=== PATIENT | female | born 1965 | race American Indian/Alaskan Native ===

== ENCOUNTER 2019-10-14 15:25 | Inpatient (IN) | payer BC ==
--- NOTE | 2019-10-14 16:04 | Event Note ---
ED Screening Note ED Screening Note: +productive cough that began a week ago +n/v/d rhinorrhea congestion +sob PMHx Graves, states has not taken medicine in 10 years allergy:penicillin +smoker, 1 pack a week non drinker This initial assessment/diagnostic orders/clinical plan/treatment(s) is/are subject to change based on patients health status, clinical progression and re- assessment by fellow clinical providers in the ED. Further treatment and workup at subsequent clinical providers discretion. Patient/guardian urged not to elope from the ED as their condition may be serious if not clinically assessed and managed. Initial orders include: labs, CXR
[2019-10-14 16:34] LABS: Basophils # (Auto) 0.1 K/mm3 (0.0-0.1); Basophils % (Auto) 1.3 % (0.0-1.8); Eosinophils % (Auto) 0.1 % (0.0-4.3); Hematocrit 41.8 % (30.3-42.9); Hemoglobin 13.7 gm/dl (10.1-14.3); Lymphocytes # (Auto) 3.3 K/mm3 (1.2-5.4); Lymphocytes % (Auto) 45.2 % (13.4-35.0); Mean Corpuscular HGB Conc 33 % (30-34); Mean Corpuscular Volume 90 fl (79-97); Monocytes # (Auto) 0.4 K/mm3 (0.0-0.8); Monocytes % (Auto) 6.2 % (0.0-7.3); Platelet Count 200 K/mm3 (140-440); Red Blood Count 4.64 M/mm3 (3.65-5.03); Red Cell Distribution Width 14.4 % (13.2-15.2)
[2019-10-14 16:43] LABS: Alanine Aminotransferase 16 units/L (7-56); Albumin 4.2 g/dL (3.9-5); BUN/Creatinine Ratio 18; Blood Urea Nitrogen 14 mg/dL (7-17); Calcium 9.4 mg/dL (8.4-10.2); Hemolysis Index 18
--- NOTE | 2019-10-14 16:47 | XRay Report ---
CHEST 2 VIEWS INDICATION / CLINICAL INFORMATION: prod cough. COMPARISON: None available. FINDINGS: SUPPORT DEVICES: None. HEART / MEDIASTINUM: Moderate cardiomegaly. LUNGS / PLEURA: Lungs appear mildly hyperinflated. Prominence of vascular and interstitial markings i s noted throughout the lungs. No consolidative parenchymal opacity. No pleural fluid. No pneumothorax . ADDITIONAL FINDINGS: No significant additional findings. IMPRESSION: 1. Findings are suggestive of CHF with mild interstitial edema in the lungs, possibly superimposed on emphysematous changes. Signer Name: Eric Briceno MD Signed: 10/14/2019 4:43 PM Workstation Name: [id number]
--- NOTE | 2019-10-14 17:56 | Emergency Department Report ---
ED Shortness of Breath HPI - General Chief Complaint: Chest Pain Stated Complaint: CHEST PAIN/NAUSE /ARLIN Time Seen by Provider: 10/14/19 16:02 Source: patient Mode of arrival: Ambulatory Limitations: No Limitations - History of Present Illness Initial Comments: 54-year-old female with a known past medical history of hypertension and Graves disease presents to emergency department complaining of a 2.5 week cough congestion coryza and a 1 week history of progressively worsening shortness of breath associated with exertional dyspnea and orthopnea. She reports no hemoptysis, hematemesis or hematochezia reports no fevers chills or sweats but has had some associated nausea and vomiting as well for the past one week. States she's never taken her thyroid medication as prescribed but reports no known history of cardiovascular disease including cardiomyopathy and CHF. - Related Data Allergies Allergy/AdvReac Type Severity Reaction Status Date / Time No Known Allergies Allergy Unverified 10/14/19 15:50 ED Review of Systems ROS: Stated complaint: CHEST PAIN/NAUSE /ARLIN Other details as noted in HPI Comment: All other systems reviewed and negative ED Past Medical Hx - Past Medical History Hx Hypertension: Yes Additional medical history: GRAVES DISEASE - Surgical History Past Surgical History?: No - Social History Smoking Status: Current Every Day Smoker Substance Use Type: Alcohol ED Physical Exam - General Limitations: No Limitations General appearance: lethargic, in distress - Head Head exam: Present: atraumatic, normocephalic - Eye Eye exam: Present: normal appearance - ENT ENT exam: Present: mucous membranes moist - Neck Neck exam: Present: normal inspection - Respiratory Respiratory exam: Present: normal lung sounds bilaterally, rales, decreased breath sounds. Absent: respiratory distress - Cardiovascular Cardiovascular Exam: Present: regular rate, normal rhythm. Absent: systolic murmur, diastolic murmur, rubs, gallop - GI/Abdominal GI/Abdominal exam: Present: soft, normal bowel sounds - Extremities Exam Extremities exam: Present: normal inspection - Back Exam Back exam: Present: normal inspection - Neurological Exam Neurological exam: Present: alert, oriented X3 - Psychiatric Psychiatric exam: Present: normal affect, normal mood - Skin Skin exam: Present: warm, dry, intact, normal color. Absent: rash ED Course Vital Signs 10/14/19 15:51 Temperature 97.7 F Pulse Rate 76 Blood Pressure 171/93 O2 Sat by Pulse 100 Oximetry - Consultations Consultation #1: 10/14/19 17:[address] Nunez of hospitalist who agrees to admission ED Medical Decision Making - Lab Data Result diagrams: 10/14/19 16:15 10/14/19 16:15 - EKG Data EKG shows normal: sinus rhythm Rate: normal - EKG Data When compared to previous EKG there are: no significant change - Radiology Data Radiology results: report reviewed [facility] [address] [place] [address] XRay Report Signed Patient: TORSTEN DIAZ MR#: [id number] : 1965 Acct:[id number] Age/Sex: 54 / F ADM Date: 10/14/19 Loc: ED Attending Dr: Ordering Physician: ELGIN JANSEN Date of Service: 10/14/19 Procedure(s): XR chest routine 2V Accession Number(s): [id number] cc: ELGIN JANSEN Fluoro Time In Minutes: CHEST 2 VIEWS INDICATION / CLINICAL INFORMATION: prod cough. COMPARISON: None available. FINDINGS: SUPPORT DEVICES: None. HEART / MEDIASTINUM: Moderate cardiomegaly. LUNGS / PLEURA: Lungs appear mildly hyperinflated. Prominence of vascular and interstitial markings is noted throughout the lungs. No consolidative parenchymal opacity. No pleural fluid. No pneum othorax. ADDITIONAL FINDINGS: No significant additional findings. IMPRESSION: 1. Findings are suggestive of CHF with mild interstitial edema in the lungs, possibly superimposed on emphysematous changes. Signer Name: Eric Briceno MD Signed: 10/14/2019 4:43 PM Workstation Name: [id number] Transcribed By: SYLVAIN Dictated By: Eric Briceno MD Electronically Authenticated By: Eric Briceno MD Signed Date/Time: 10/14/19 164 DD/ 164 TD/TT: Critical care attestation.: If time is entered above; I have spent that time in minutes in the direct care of this critically ill patient, excluding procedure time. ED Disposition Clinical Impression: SOB (shortness of breath), CHF (congestive heart failure) Disposition: 09 OP ADMIT IP TO THIS HOSP Is pt being admited?: Yes Does the pt Need Aspirin: No Condition: Stable
[2019-10-14] MEDS ORDERED: MORPHINE 4 MG/1 ML INJ IV ONE (18:44)
[2019-10-14] MEDS ORDERED: ONDANSETRON 4 MG/2 ML INJ IV ONE (18:44)
[2019-10-14] MEDS ORDERED: ONDANSETRON 4 MG/2 ML INJ IV PRN (20:48)
[2019-10-14] MEDS ORDERED: ACETAMINOPHEN 325 MG TAB PO PRN (20:48)
--- NOTE | 2019-10-14 20:48 | History and Physical Report ---
History of Present Illness Date of examination: 10/14/19 Date of admission: 10/14/19 18:01 Chief complaint: Shortness of breath for 1 week History of present illness: 54-year-old -[place] female with history of hypertension, congestive heart failure and hypothyroidism comes in for increasing shortness of breath over the last 1 week. Patient has exertional dyspnea on minimal exertion and also has orthopnea and wheezing. Patient states that she has CHF and not taking any medications or follow-up with any physician/primary care/cardiology. No chest pain. Patient is not taking her thyroid medications as prescribed. Noncompliant. Current every day smoker and alcohol occasionally. Patient also has cough and congestion. Past Medical History Hypertension CHF Hypothyroidism Surgical History Past Surgical History?: No Social History Smoking Status: Current Every Day Smoker Substance Use Type: Alcohol Family History CHF,Htn Review of Systems ROS: Stated complaint: CHEST PAIN/NAUSE /ARLIN Other details as noted in HPI Comment: All other systems reviewed and negative Medications and Allergies Allergies Allergy/AdvReac Type Severity Reaction Status Date / Time No Known Allergies Allergy Verified 10/14/19 18:17 Home Medications Medication Instructions Recorded Confirmed Last Taken Type No Known Home Medications [No 10/14/19 10/14/19 Unknown History Reported Home Medications] Exam - Constitutional Vitals: Temp Pulse Resp BP Pulse Ox 98.5 F 73 18 147/81 99 10/14/19 19:56 10/14/19 19:56 10/14/19 19:56 10/14/19 19:56 10/14/19 19:56 General appearance: Present: no acute distress, well-nourished - EENT Eyes: Present: PERRL ENT: hearing intact, clear oral mucosa - Neck Neck: Present: supple, normal ROM - Respiratory Respiratory effort: normal Respiratory: bilateral: rales - Cardiovascular Heart rate: 93 Rhythm: regular Heart Sounds: Present: S1 & S2. Absent: rub, click - Extremities Extremities: no ischemia, pulses intact, pulses symmetrical, No edema Peripheral Pulses: within normal limits - Abdominal General gastrointestinal: Present: soft, non-tender, non-distended, normal bowel sounds Female genitourinary: Present: normal - Rectal Rectal Exam: deferred - Integumentary Integumentary: Present: clear, warm, dry - Musculoskeletal Musculoskeletal: gait normal, strength equal bilaterally - Psychiatric Psychiatric: appropriate mood/affect, intact judgment & insight - Neurologic Neurologic: CNII-XII intact, moves all extremities - Allied Health Allied health notes reviewed: nursing, case management Results - Labs CBC & Chem 7: 10/14/19 16:15 10/14/19 16:15 Labs: Laboratory Last Values WBC 7.2 K/mm3 (4.5-11.0) 10/14/19 16:15 RBC 4.64 M/mm3 (3.65-5.03) 10/14/19 16:15 Hgb 13.7 gm/dl (10.1-14.3) 10/14/19 16:15 Hct 41.8 % (30.3-42.9) 10/14/19 16:15 MCV 90 fl (79-97) 10/14/19 16:15 MCH 30 pg (28-32) 10/14/19 16:15 MCHC 33 % (30-34) 10/14/19 16:15 RDW 14.4 % (13.2-15.2) 10/14/19 16:15 Plt Count 200 K/mm3 (140-440) 10/14/19 16:15 Lymph % (Auto) 45.2 % (13.4-35.0) H 10/14/19 16:15 Morris % (Auto) 6.2 % (0.0-7.3) 10/14/19 16:15 Eos % (Auto) 0.1 % (0.0-4.3) 10/14/19 16:15 Baso % (Auto) 1.3 % (0.0-1.8) 10/14/19 16:15 Lymph # 3.3 K/mm3 (1.2-5.4) 10/14/19 16:15 Morris # 0.4 K/mm3 (0.0-0.8) 10/14/19 16:15 Eos # 0.0 K/mm3 (0.0-0.4) 10/14/19 16:15 Baso # 0.1 K/mm3 (0.0-0.1) 10/14/19 16:15 Seg Neutrophils % 47.2 % (40.0-70.0) 10/14/19 16:15 Seg Neutrophils # 3.4 K/mm3 (1.8-7.7) 10/14/19 16:15 Sodium 137 mmol/L (137-145) 10/14/19 16:15 Potassium 4.0 mmol/L (3.6-5.0) 10/14/19 16:15 Chloride 98.8 mmol/L (98-107) 10/14/19 16:15 Carbon Dioxide 17 mmol/L (22-30) L 10/14/19 16:15 Anion Gap 25 mmol/L 10/14/19 16:15 BUN 14 mg/dL (7-17) 10/14/19 16:15 Creatinine 0.8 mg/dL (0.7-1.2) 10/14/19 16:15 Estimated GFR > 60 ml/min 10/14/19 16:15 BUN/Creatinine Ratio 18 % 10/14/19 16:15 Glucose 121 mg/dL (65-100) H 10/14/19 16:15 Calcium 9.4 mg/dL (8.4-10.2) 10/14/19 16:15 Phosphorus 2.10 mg/dL (2.5-4.5) L 10/14/19 16:15 Magnesium 1.80 mg/dL (1.7-2.3) 10/14/19 16:15 Total Bilirubin 1.00 mg/dL (0.1-1.2) 10/14/19 16:15 AST 22 units/L (5-40) 10/14/19 16:15 ALT 16 units/L (7-56) 10/14/19 16:15 Alkaline Phosphatase 69 units/L (35-129) 10/14/19 16:15 Total Creatine Kinase 95 units/L (30-135) 10/14/19 16:15 Troponin T < 0.010 ng/mL (0.00-0.029) 10/14/19 16:15 NT-Pro-B Natriuret Pep 6355 pg/mL (0-900) H 10/14/19 16:15 Total Protein 7.3 g/dL (6.3-8.2) 10/14/19 16:15 Albumin 4.2 g/dL (3.9-5) 10/14/19 16:15 Albumin/Globulin Ratio 1.4 % 10/14/19 16:15 Lipase 11 units/L (13-60) L 10/14/19 16:15 TSH 9.000 mlU/mL (0.270-4.200) H 10/14/19 16:15 Short CBC 10/14/19 Range/Units 16:15 WBC 7.2 (4.5-11.0) K/mm3 Hgb 13.7 (10.1-14.3) gm/dl Hct 41.8 (30.3-42.9) % Plt Count 200 (140-440) K/mm3 BMP 10/14/19 16:15 Sodium 137 Potassium 4.0 Chloride 98.8 Carbon Dioxide 17 L BUN 14 Creatinine 0.8 Glucose 121 H Calcium 9.4 Cardiac Enzymes 10/14/19 10/14/19 Range/Units 16:15 16:15 Total Creatine Kinase 95 (30-135) units/L Troponin T < 0.010 (0.00-0.029) ng/mL Liver Function 10/14/19 Range/Units 16:15 Total Bilirubin 1.00 (0.1-1.2) mg/dL AST 22 (5-40) units/L ALT 16 (7-56) units/L Alkaline Phosphatase 69 (35-129) units/L Albumin 4.2 (3.9-5) g/dL - Imaging and Cardiology EKG: report reviewed (normal sinus rhythm, heart rate of 93 per minute, LVH by voltage criteria) Chest x-ray: report reviewed Imaging and Cardiology: Chest x-ray IMPRESSION: 1. Findings are suggestive of CHF with mild interstitial edema in the lungs, possibly superimposed on emphysematous changes. Assessment and Plan Advance Directives: Yes (full code) VTE prophylaxis?: Chemical Plan of care discussed with patient/family: Yes - Patient Problems (1) Acute exacerbation of CHF (congestive heart failure) Current Visit: Yes Status: Acute Qualifiers: Heart failure type: combined systolic and diastolic Qualified Code(s): I50. 43 - Acute on chronic combined systolic (congestive) and diastolic (congestive) heart failure Plan to address problem: Patient needs admission for acute exacerbation of CHF BNP is high Patient is orthopneic and has class IV NYHA symptoms IV Lasix every 12 hours Daily weights Daily intake and output Cardiology consult Echocardiogram ordered (2) Hypertension Current Visit: Yes Status: Chronic Qualifiers: Hypertension type: essential hypertension Qualified Code(s): I10 - Essential (primary) hypertension Plan to address problem: Patient was started on losartan 100 mg once a day (3) Hypothyroidism (acquired) Current Visit: Yes Status: Chronic Plan to address problem: History is not clear Patient says Graves' disease But suspect hypothyroidism because TSH is high Thyroid panel ordered Patient was not started on any thyroid medication or methimazole Will defer to primary team (4) Nicotine dependence Current Visit: Yes Status: Chronic Qualifiers: Nicotine product type: cigarettes Plan to address problem: Patient counseled about stopping smoking NicoDerm patch ordered (5) DVT prophylaxis Current Visit: Yes Status: Acute Plan to address problem: On heparin and GI prophylaxis
[2019-10-14] MEDS ORDERED: POTASSIUM CHLORIDE ER 20 MEQ TAB PO ONE (20:53)
[2019-10-14] MEDS ORDERED: LIP THERAPY VASELINE TP PRN (21:26)
[2019-10-14] MEDS: HYDROmorphone 1 MG/1 ML INJ IV PRN (21:29)
[2019-10-14] MEDS: FAMOTIDINE 20 MG TAB PO SCH (21:30)
[2019-10-14] MEDS: LOSARTAN 50 MG TAB PO SCH (21:30)
[2019-10-14 22:00] LABS: Free T4 (Free Thyroxine) 1.15 ng/dL (0.76-1.46)
[2019-10-15] MEDS: FUROSEMIDE 40 MG/4 ML INJ IV SCH ×2 (05:09→18:26)
[2019-10-15 07:58] LABS: Basophils # (Auto) 0.1 K/mm3 (0.0-0.1); Basophils % (Auto) 1.3 % (0.0-1.8); Eosinophils # (Auto) 0.1 K/mm3 (0.0-0.4); Eosinophils % (Auto) 1.2 % (0.0-4.3); Hematocrit 40.7 % (30.3-42.9); Hemoglobin 13.3 gm/dl (10.1-14.3); Lymphocytes # (Auto) 2.8 K/mm3 (1.2-5.4); Lymphocytes % (Auto) 47.3 % (13.4-35.0); Mean Corpuscular HGB Conc 33 % (30-34); Mean Corpuscular Volume 90 fl (79-97); Monocytes # (Auto) 0.6 K/mm3 (0.0-0.8); Monocytes % (Auto) 9.6 % (0.0-7.3); Platelet Count 165 K/mm3 (140-440); Red Blood Count 4.52 M/mm3 (3.65-5.03); Red Cell Distribution Width 14.2 % (13.2-15.2)
[2019-10-15] MEDS: oxyCODONE /ACETAMINOPHEN 5-325MG TAB PO PRN ×2 (08:09→18:26)
[2019-10-15 08:12] LABS: Alanine Aminotransferase 15 units/L (7-56); BUN/Creatinine Ratio 16; Blood Urea Nitrogen 13 mg/dL (7-17); Calcium 9.2 mg/dL (8.4-10.2); Hemolysis Index 4
--- NOTE | 2019-10-15 08:55 | Progress Note ---
Assessment and Plan Assessment and plan: 54-year-old woman who presents to the hospital with increased shortness of breath and chest pain. Chest pain Cardiology input appreciated, follow-up echo History of heart failure Subclinical hypothyroidism -History of Graves' disease. Thyroxine levels are normal. Repeat thyroid function tests in 3 to 4 months. Tobacco abuse/dependence Smoking cessation counseling performed for 10 minutes, nicotine patches when necessary History Interval history: Review of systems Constitutional: No fevers, no malaise, no joint pains CVS: No chest pain, no orthopnea, no pedal edema GI: No abdominal pain, no diarrhea, no vomiting, no constipation Respiratory: , no wheezing, no coughing Hospitalist Physical - Physical exam Narrative exam: General.: Appears well, no distress, nontoxic HEENT: Moist mucous membranes, extraocular muscles intact, no lymphadenopathy Neck: supple Cardiac: S1-S2 heard Lungs: clear to auscultation bilaterally Abdomen: soft , nontender, nondistended, bowel sounds positive Extremities: no edema clubbing or cyanosis Skin: no rash or lesions Neurologic: no gross focal deficits Psych: calm, and cooperative - Constitutional Vitals: Temp Pulse Resp BP Pulse Ox 97.6 F 67 18 134/75 95 10/15/19 07:52 10/15/19 07:52 10/15/19 07:52 10/15/19 07:52 10/15/19 07:52 General appearance: Present: no acute distress, well-nourished Results - Labs CBC & Chem 7: 10/15/19 07:34 10/15/19 07:34 Labs: Laboratory Last Values WBC 6.0 K/mm3 (4.5-11.0) 10/15/19 07:34 RBC 4.52 M/mm3 (3.65-5.03) 10/15/19 07:34 Hgb 13.3 gm/dl (10.1-14.3) 10/15/19 07:34 Hct 40.7 % (30.3-42.9) 10/15/19 07:34 MCV 90 fl (79-97) 10/15/19 07:34 MCH 29 pg (28-32) 10/15/19 07:34 MCHC 33 % (30-34) 10/15/19 07:34 RDW 14.2 % (13.2-15.2) 10/15/19 07:34 Plt Count 165 K/mm3 (140-440) 10/15/19 07:34 Lymph % (Auto) 47.3 % (13.4-35.0) H 10/15/19 07:34 [place]ower % (Auto) 9.6 % (0.0-7.3) H 10/15/19 07:34 Eos % (Auto) 1.2 % (0.0-4.3) 10/15/19 07:34 Baso % (Auto) 1.3 % (0.0-1.8) 10/15/19 07:34 Lymph # 2.8 K/mm3 (1.2-5.4) 10/15/19 07:34 Mower # 0.6 K/mm3 (0.0-0.8) 10/15/19 07:34 Eos # 0.1 K/mm3 (0.0-0.4) 10/15/19 07:34 Baso # 0.1 K/mm3 (0.0-0.1) 10/15/19 07:34 Seg Neutrophils % 40.6 % (40.0-70.0) 10/15/19 07:34 Seg Neutrophils # 2.4 K/mm3 (1.8-7.7) 10/15/19 07:34 Sodium 140 mmol/L (137-145) 10/15/19 07:34 Potassium 3.7 mmol/L (3.6-5.0) 10/15/19 07:34 Chloride 103.0 mmol/L (98-107) 10/15/19 07:34 Carbon Dioxide 20 mmol/L (22-30) L 10/15/19 07:34 Anion Gap 21 mmol/L 10/15/19 07:34 BUN 13 mg/dL (7-17) 10/15/19 07:34 Creatinine 0.8 mg/dL (0.7-1.2) 10/15/19 07:34 Estimated GFR > 60 ml/min 10/15/19 07:34 BUN/Creatinine Ratio 16 % 10/15/19 07:34 Glucose 99 mg/dL (65-100) 10/15/19 07:34 Hemoglobin A1c 5.9 % (4-6) 10/14/19 21:26 Calcium 9.2 mg/dL (8.4-10.2) 10/15/19 07:34 Phosphorus 2.10 mg/dL (2.5-4.5) L 10/14/19 16:15 Magnesium 1.80 mg/dL (1.7-2.3) 10/14/19 16:15 Total Bilirubin 1.00 mg/dL (0.1-1.2) 10/15/19 07:34 AST 18 units/L (5-40) 10/15/19 07:34 ALT 15 units/L (7-56) 10/15/19 07:34 Alkaline Phosphatase 64 units/L (35-129) 10/15/19 07:34 Total Creatine Kinase 95 units/L (30-135) 10/14/19 16:15 Troponin T < 0.010 ng/mL (0.00-0.029) 10/15/19 07:34 NT-Pro-B Natriuret Pep 6355 pg/mL (0-900) H 10/14/19 16:15 Total Protein 6.8 g/dL (6.3-8.2) 10/15/19 07:34 Albumin 4.0 g/dL (3.9-5) 10/15/19 07:34 Albumin/Globulin Ratio 1.4 % 10/15/19 07:34 Lipase 11 units/L (13-60) L 10/14/19 16:15 TSH 6.780 mlU/mL (0.270-4.200) H 10/14/19 21:26 Free T4 1.15 ng/dL (0.76-1.46) 10/14/19 21:26 Active Medications - Current Medications Current Medications: Generic Name Dose Route Start Last Admin Trade Name Freq PRN Reason Stop Dose Admin Acetaminophen 650 mg 10/14/19 20:48 Tylenol PO Q4H PRN Pain MILD(1-3)/Fever >100.5/MATHIAS Famotidine 20 mg 10/14/19 22:00 10/14/19 21:30 Pepcid PO 20 mg BID MONTRELL Administration Furosemide 40 mg 10/15/19 06:00 10/15/19 05:09 Lasix IV 40 mg 0600,1800 MONTRELL Administration Hydromorphone HCl 1 mg 10/14/19 20:48 10/14/19 21:29 Dilaudid IV 1 mg Q3H PRN Administration Pain , Severe (7-10) Hydrophilic Ointment 1 applic 10/14/19 21:26 Vaseline Lip Therapy TP DIRECT PRN Dry Lips Losartan Potassium 100 mg 10/14/19 21:00 10/14/19 21:30 Cozaar PO 100 mg QDAY MONTRELL Administration Nicotine 14 mg 10/15/19 10:00 Habitrol TD QDAY MONTRELL Ondansetron HCl 4 mg 10/14/19 20:48 Zofran IV Q8H PRN Nausea And Vomiting Oxycodone/Acetaminophen 1 tab 10/14/19 20:48 10/15/19 08:09 Percocet 5/325 PO 1 tab Q6H PRN Administration Pain, Moderate (4-6) Pneumococcal Polyvalent Vaccine 0.5 ml 10/15/19 12:00 Pneumovax 23 IM 10/15/19 12:01 .ONCE ONE Sodium Chloride 10 ml 10/14/19 22:00 10/14/19 21:31 Sodium Chloride Flush Syringe 10 Ml IV 10 ml BID MONTRELL Administration Sodium Chloride 10 ml 10/14/19 20:48 Sodium Chloride Flush Syringe 10 Ml IV PRN PRN LINE FLUSH
[2019-10-15] MEDS: LOSARTAN 50 MG TAB PO SCH (11:51)
[2019-10-15] MEDS: FAMOTIDINE 20 MG TAB PO SCH ×2 (11:52→21:11)
[2019-10-15] MEDS: NICOTINE 14 MG/24 HR PATCH TD SCH (11:52)
[2019-10-15] MEDS: HYDROmorphone 1 MG/1 ML INJ IV PRN ×2 (11:52→21:14)
[2019-10-15] MEDS ORDERED: FLU VACC QUAD 2019-20 (3 YR UP)/PF 60 MCG/0.5 ML SYRINGE IM ONE (12:00)
[2019-10-15] MEDS ORDERED: PNEUMOCOCCAL 23 Valent 0.5 ML VIAL IM ONE (12:00)
--- NOTE | 2019-10-15 12:00 | Consultation ---
History of Present Illness Consult date: 10/15/19 Consult reason: chest pain, shortness of breath History of present illness: 54 yo f with a past hx of htn and heart failure presents to [facility] with a 3 week hx of abd pain, nausea, vomiting as well as chest pain and sob. the gi symptoms have subsided but the chest pain, described as squeezing, and the sob--both at rest and with exertion have persisted. pt not currently on any medications. the troponins are neg. the pro bnp and tsh are elevated. Past History Past Medical History: heart failure, hypertension Social history: smoking Family history: hypertension, other (heart failure) Medications and Allergies Allergies Allergy/AdvReac Type Severity Reaction Status Date / Time No Known Allergies Allergy Verified 10/14/19 18:17 Home Medications Medication Instructions Recorded Confirmed Last Taken Type No Known Home Medications [No 10/14/19 10/14/19 Unknown History Reported Home Medications] Active Meds: Active Medications Acetaminophen (Tylenol) 650 mg PO Q4H PRN PRN Reason: Pain MILD(1-3)/Fever >100.5/MATHIAS Famotidine (Pepcid) 20 mg PO BID [facility] Last Admin: 10/15/19 11:52 Dose: 20 mg Documented by: Furosemide (Lasix) 40 mg IV 0600,1800 [facility] Last Admin: 10/15/19 05:09 Dose: 40 mg Documented by: Hydromorphone HCl (Dilaudid) 1 mg IV Q3H PRN PRN Reason: Pain , Severe (7-10) Last Admin: 10/15/19 11:52 Dose: 1 mg Documented by: Hydrophilic Ointment (Vaseline Lip Therapy) 1 applic TP DIRECT PRN PRN Reason: Dry Lips Losartan Potassium (Cozaar) 100 mg PO QDAY [facility] Last Admin: 10/15/19 11:51 Dose: 100 mg Documented by: Nicotine (Habitrol) 14 mg TD QDAY [facility] Last Admin: 10/15/19 11:52 Dose: 14 mg Documented by: Ondansetron HCl (Zofran) 4 mg IV Q8H PRN PRN Reason: Nausea And Vomiting Oxycodone/Acetaminophen (Percocet 5/325) 1 tab PO Q6H PRN PRN Reason: Pain, Moderate (4-6) Last Admin: 10/15/19 08:09 Dose: 1 tab Documented by: Pneumococcal Polyvalent Vaccine (Pneumovax 23) 0.5 ml IM .ONCE ONE Stop: 10/15/19 12:01 Sodium Chloride (Sodium Chloride Flush Syringe 10 Ml) 10 ml IV BID MONTRELL Last Admin: 10/15/19 11:53 Dose: 10 ml Documented by: Sodium Chloride (Sodium Chloride Flush Syringe 10 Ml) 10 ml IV PRN PRN PRN Reason: LINE FLUSH Review of Systems Constitutional: no weight loss, no fever, no chills Eyes: bilateral: blurred vision (none) Ears, nose, mouth and throat: no epistaxis Cardiovascular: chest pain, shortness of breath Respiratory: no cough Gastrointestinal: abdominal pain, nausea, vomiting Musculoskeletal: no hot joints, no frequent falls Integumentary: no rash Neurological: no seizures, no syncope Psychiatric: no anxiety Endocrine: no cold intolerance, no heat intolerance, no polyphagia, no excessive thirst, no polydipsia, no polyuria Hematologic/Lymphatic: no easy bruising Allergic/Immunologic: no urticaria Physical Examination Vital Signs Temp Pulse BP Pulse Ox 97.7 F 76 171/93 100 10/14/19 15:51 10/14/19 15:51 10/14/19 15:51 10/14/19 15:51 General appearance: no acute distress HEENT: Positive: PERRL Neck: Positive: neck supple, Carotid Upstroke (normal bilat). Negative: JVD/HJR, Bruit Cardiac: Positive: Reg Rate and Rhythm. Negative: Audible Murmur Lungs: Positive: clear to auscultation Neuro: Positive: Grossly Intact Abdomen: Positive: Soft. Negative: Tender Skin: Negative: Rash Musculoskeletal: Normal Range of Motion Extremities: Present: Other (pedal pulses intact). Absent: edema Results 10/15/19 07:34 10/15/19 07:34 Cardiac Enzymes 10/14/19 10/15/19 Range/Units 16:15 07:34 AST 22 18 (5-40) units/L CBC 10/14/19 10/15/19 Range/Units 16:15 07:34 WBC 7.2 6.0 (4.5-11.0) K/mm3 RBC 4.64 4.52 (3.65-5.03) M/mm3 Hgb 13.7 13.3 (10.1-14.3) gm/dl Hct 41.8 40.7 (30.3-42.9) % Plt Count 200 165 (140-440) K/mm3 Lymph # 3.3 2.8 (1.2-5.4) K/mm3 [place] # 0.4 0.6 (0.0-0.8) K/mm3 Eos # 0.0 0.1 (0.0-0.4) K/mm3 Baso # 0.1 0.1 (0.0-0.1) K/mm3 Comprehensive Metabolic Panel 10/14/19 10/15/19 Range/Units 16:15 07:34 Sodium 137 140 (137-145) mmol/L Potassium 4.0 3.7 (3.6-5.0) mmol/L Chloride 98.8 103.0 (98-107) mmol/L Carbon Dioxide 17 L 20 L (22-30) mmol/L BUN 14 13 (7-17) mg/dL Creatinine 0.8 0.8 (0.7-1.2) mg/dL Glucose 121 H 99 (65-100) mg/dL Calcium 9.4 9.2 (8.4-10.2) mg/dL AST 22 18 (5-40) units/L ALT 16 15 (7-56) units/L Alkaline Phosphatase 69 64 (35-129) units/L Total Protein 7.3 6.8 (6.3-8.2) g/dL Albumin 4.2 4.0 (3.9-5) g/dL Assessment and Plan vss chest pain sob cardiomegaly on cxr tobacco abuse hx chf agree with mgt will review echo. if heart failure with reduced ef present would pursue ischemic evaluation
--- NOTE | 2019-10-15 18:07 | Cat Scan Report ---
CT NECK WITH INTRAVENOUS CONTRAST AND MULTIPLANAR RECONSTRUCTION CLINICAL HISTORY: choking sensation, thyroid pressure TECHNIQUE: 3.7 mm thick contiguous axial scans were obtained from the skull base down to the aortic arch during intravenous contrast administration. In addition to evaluation of axial source images sagittal and co zenaida multiplanar reconstructions were produced and reviewed for this report. FINDINGS: This study excluded the thoracic aorta and origins of the great vessels. The study excludes the yan oclavicular joints. No abnormalities are seen along the course of the airway. Nasopharynx, oropharynx, hypopharynx, laryn x and visualized portions of the subglottic airway all have an unremarkable appearance. There is no indication of cervical lymphadenopathy. No abnormalities are seen in evaluation of the oral cavity and tongue. The floor the mouth has a norm al appearance. The parotid and submandibular salivary glands have a normal appearance. Evaluation of the nasal cavity reveals no abnormality. The paranasal sinuses are free from inflammato ry mucosal disease. Evaluation of the orbits a reveals no abnormality. The thyroid gland is normal in size and homogeneous in attenuation. No focal thyroid lesions are iden tified. Evaluation of the cervical spine is remarkable for degenerative changes at the C5-6 level where anter ior osteophyte formation is observed. There is loss of vertebral body height anteriorly at the C6 lev el perhaps secondary to remote compression injury. Evaluation of the lung apices reveals no abnormality. There is no indication of lung nodule or infilt rate. The visualized portions of the superior mediastinum have an unremarkable appearance. Enhancement of normal vascular structures is demonstrated. No areas of abnormal contrast enhancement are identified. IMPRESSION: 1.. Examination was carried down to the level of the clavicles but did not include the sternoclavicul ar joints or thoracic aorta. 2. No abnormalities are identified on this limited CT neck examination. All CT imaging studies performed at this facility utilize dose modulation, iterative reconstruction o r weight based dosing, if appropriate, to obtain the lowest achievable radiation dose. Signer Name: Corky Keyes MD Signed: 10/15/2019 6:02 PM Workstation Name: [id number]
[2019-10-16] MEDS: FUROSEMIDE 40 MG/4 ML INJ IV SCH (05:04)
[2019-10-16] MEDS ORDERED: REGADENOSON 0.4 MG/5 ML INJ IV ONE (07:07)
--- NOTE | 2019-10-16 10:23 | Progress Note ---
Hospitalist Physical - Constitutional Vitals: Temp Pulse Resp BP Pulse Ox 97.9 F 63 18 125/68 98 10/16/19 08:01 10/16/19 09:32 10/16/19 08:01 10/16/19 08:01 10/16/19 08:01 General appearance: Present: no acute distress Results - Labs CBC & Chem 7: 10/15/19 07:34 10/15/19 07:34 Labs: Laboratory Last Values WBC 6.0 K/mm3 (4.5-11.0) 10/15/19 07:34 RBC 4.52 M/mm3 (3.65-5.03) 10/15/19 07:34 Hgb 13.3 gm/dl (10.1-14.3) 10/15/19 07:34 Hct 40.7 % (30.3-42.9) 10/15/19 07:34 MCV 90 fl (79-97) 10/15/19 07:34 MCH 29 pg (28-32) 10/15/19 07:34 MCHC 33 % (30-34) 10/15/19 07:34 RDW 14.2 % (13.2-15.2) 10/15/19 07:34 Plt Count 165 K/mm3 (140-440) 10/15/19 07:34 Lymph % (Auto) 47.3 % (13.4-35.0) H 10/15/19 07:34 [place] % (Auto) 9.6 % (0.0-7.3) H 10/15/19 07:34 Eos % (Auto) 1.2 % (0.0-4.3) 10/15/19 07:34 Baso % (Auto) 1.3 % (0.0-1.8) 10/15/19 07:34 Lymph # 2.8 K/mm3 (1.2-5.4) 10/15/19 07:34 [place] # 0.6 K/mm3 (0.0-0.8) 10/15/19 07:34 Eos # 0.1 K/mm3 (0.0-0.4) 10/15/19 07:34 Baso # 0.1 K/mm3 (0.0-0.1) 10/15/19 07:34 Seg Neutrophils % 40.6 % (40.0-70.0) 10/15/19 07:34 Seg Neutrophils # 2.4 K/mm3 (1.8-7.7) 10/15/19 07:34 Sodium 140 mmol/L (137-145) 10/15/19 07:34 Potassium 3.7 mmol/L (3.6-5.0) 10/15/19 07:34 Chloride 103.0 mmol/L (98-107) 10/15/19 07:34 Carbon Dioxide 20 mmol/L (22-30) L 10/15/19 07:34 Anion Gap 21 mmol/L 10/15/19 07:34 BUN 13 mg/dL (7-17) 10/15/19 07:34 Creatinine 0.8 mg/dL (0.7-1.2) 10/15/19 07:34 Estimated GFR > 60 ml/min 10/15/19 07:34 BUN/Creatinine Ratio 16 % 10/15/19 07:34 Glucose 99 mg/dL (65-100) 10/15/19 07:34 Hemoglobin A1c 5.9 % (4-6) 10/14/19 21:26 Calcium 9.2 mg/dL (8.4-10.2) 10/15/19 07:34 Phosphorus 2.10 mg/dL (2.5-4.5) L 10/14/19 16:15 Magnesium 1.80 mg/dL (1.7-2.3) 10/14/19 16:15 Total Bilirubin 1.00 mg/dL (0.1-1.2) 10/15/19 07:34 AST 18 units/L (5-40) 10/15/19 07:34 ALT 15 units/L (7-56) 10/15/19 07:34 Alkaline Phosphatase 64 units/L (35-129) 10/15/19 07:34 Total Creatine Kinase 95 units/L (30-135) 10/14/19 16:15 Troponin T < 0.010 ng/mL (0.00-0.029) 10/15/19 07:34 NT-Pro-B Natriuret Pep 6355 pg/mL (0-900) H 10/14/19 16:15 Total Protein 6.8 g/dL (6.3-8.2) 10/15/19 07:34 Albumin 4.0 g/dL (3.9-5) 10/15/19 07:34 Albumin/Globulin Ratio 1.4 % 10/15/19 07:34 Lipase 11 units/L (13-60) L 10/14/19 16:15 TSH 6.780 mlU/mL (0.270-4.200) H 10/14/19 21:26 Free T4 1.15 ng/dL (0.76-1.46) 10/14/19 21:26 Thyroxine (T4) 6.3 ug/dL (4.0-12.0) 10/16/19 05:24 Active Medications - Current Medications Current Medications: Generic Name Dose Route Start Last Admin Trade Name Freq PRN Reason Stop Dose Admin Acetaminophen 650 mg 10/14/19 20:48 Tylenol PO Q4H PRN Pain MILD(1-3)/Fever >100.5/MATHIAS Famotidine 20 mg 10/14/19 22:00 10/15/19 21:11 Pepcid PO 20 mg BID MONTRELL Administration Furosemide 40 mg 10/15/19 06:00 10/16/19 05:04 Lasix IV 40 mg 0600,1800 MONTRELL Administration Hydromorphone HCl 1 mg 10/14/19 20:48 10/15/19 21:14 Dilaudid IV 1 mg Q3H PRN Administration Pain , Severe (7-10) Hydrophilic Ointment 1 applic 10/14/19 21:26 10/15/19 21:15 Vaseline Lip Therapy TP 1 applic DIRECT PRN Administration Dry Lips Losartan Potassium 100 mg 10/14/19 21:00 10/15/19 11:51 Cozaar PO 100 mg QDAY MONTRELL Administration Nicotine 14 mg 10/15/19 10:00 10/15/19 11:52 Habitrol TD 14 mg QDAY MONTRELL Administration Ondansetron HCl 4 mg 10/14/19 20:48 10/15/19 18:31 Zofran IV 4 mg Q8H PRN Administration Nausea And Vomiting Oxycodone/Acetaminophen 1 tab 10/14/19 20:48 10/15/19 18:26 Percocet 5/325 PO 1 tab Q6H PRN Administration Pain, Moderate (4-6) Sodium Chloride 10 ml 10/14/19 22:00 10/15/19 21:14 Sodium Chloride Flush Syringe 10 Ml IV 10 ml BID MONTRELL Administration Sodium Chloride 10 ml 10/14/19 20:48 Sodium Chloride Flush Syringe 10 Ml IV PRN PRN LINE FLUSH
--- NOTE | 2019-10-16 10:27 | Discharge Summary ---
Providers - Providers Date of Admission: 10/14/19 18:01 Attending physician: CORRIE EAST MD 10/14/19 20:55 Consult to Physician [CONS] Routine Comment: Consulting Provider: ANDREI MONTOYA Physician Instructions: Reason For Exam: CHF exacerbation Primary care physician: FINE ARTIST Hospitalization Condition: Stable Hospital course: 54-year-old woman who presents to the hospital with increased shortness of breath and chest pain. Chest pain likely due to costochondritis Cardiology input appreciated, echo shows reduced EF, which is unchanged from previous. Went on to have a stress test that was negative Chronic systolic heart failure, EF of 35% Meds optimized by museum docent Subclinical hypothyroidism -History of Graves' disease. Thyroxine levels are normal. Repeat thyroid function tests in 3 to 4 months. Tobacco abuse/dependence Smoking cessation counseling performed for 10 minutes, nicotine patches when necessary Preventative health counseling performed for 17 minutes Disposition: [id number]-01 TO HOME OR SELFCARE Time spent for discharge: 35 minutes Core Measure Documentation - Palliative Care Palliative Care/ Comfort Measures: Not Applicable - Core Measures Any of the following diagnoses?: heart failure - Heart Failure Discharge Requirements FRANCES/ARB for LVSD if EF <40%: Yes Beta felecia at discharge: No Reason for no beta felecia on DC: Bradycardia Exam - Constitutional Vitals: Temp Pulse Resp BP Pulse Ox 97.9 F 63 18 125/68 98 10/16/19 08:01 10/16/19 09:32 10/16/19 08:01 10/16/19 08:01 10/16/19 08:01 General appearance: Present: no acute distress, well-nourished - EENT Eyes: Present: PERRL ENT: hearing intact, clear oral mucosa - Neck Neck: Present: supple, normal ROM - Respiratory Respiratory effort: normal Respiratory: bilateral: CTA - Cardiovascular Heart Sounds: Present: S1 & S2. Absent: rub, click - Extremities Extremities: pulses symmetrical, No edema Peripheral Pulses: within normal limits - Abdominal General gastrointestinal: Present: soft, non-tender, non-distended, normal bowel sounds Female genitourinary: Present: normal - Integumentary Integumentary: Present: clear, warm, dry - Musculoskeletal Musculoskeletal: gait normal, strength equal bilaterally - Psychiatric Psychiatric: appropriate mood/affect, intact judgment & insight - Neurologic Neurologic: CNII-XII intact, moves all extremities Plan Follow up with: PRIMARY CARE, [Primary Care Provider] - 7 Days Forms: Work/School Release Form Prescriptions: Losartan [Cozaar] 100 mg PO QDAY #180 tablet Nicotine [Habitrol] 14 mg TD QDAY #30 patch Furosemide [Lasix TAB] 40 mg PO QDAY #90 tablet
[2019-10-16 12:51] VITALS: BP 137/84
[2019-10-16] MEDS: LOSARTAN 50 MG TAB PO SCH (12:57)
[2019-10-16] MEDS: NICOTINE 14 MG/24 HR PATCH TD SCH (12:58)
[2019-10-16] MEDS: FAMOTIDINE 20 MG TAB PO SCH (12:58)
--- NOTE | 2019-10-16 13:20 | Progress Note ---
Assessment and Plan Assessment: chest pain - currently resolved Acute HFrEF CMP - presumably nonischemic HTN tobacco abuse - cessation encouraged MR / TR Plan: Echo reviewed - EF 30-35%, grade 3 diastolic dysfunction, hypokinetic RV, mild AR, severe MR, moderately severe TR, dilated LA, RVSP 60-65mmHg. S/p lexiscan MPI stress test today which was negative for ischemia, EF 38%. Chest pain and dyspnea resolved. Currently stable cardiac status. Convert IV lasix to PO lasix and initiate BB in setting of CMP, cont losartan. Pt may discharge home from cardiology standpoint. Recommend pt follow up in our office with Dr. Baker within 3-5 days ([phone]). The patient has been seen in conjunction with Dr. Moreira who agrees with the assessment and plan of care. Subjective Date of service: 10/16/19 Principal diagnosis: cp Interval history: pt for stress test, no current complaints. Objective Last Vital Signs Temp 98.3 F 10/16/19 12:16 Pulse 72 10/16/19 12:16 Resp 18 10/16/19 12:16 BP 137/84 10/16/19 12:16 Pulse Ox 95 10/16/19 12:16 - Physical Examination General: No Apparent Distress HEENT: Positive: PERRL Neck: Positive: neck supple, Carotid Upstroke (normal bilat). Negative: JVD/HJR, Bruit Cardiac: Positive: Reg Rate and Rhythm, S1/S2 Lungs: Positive: Decreased Breath Sounds Neuro: Positive: Grossly Intact Abdomen: Positive: Soft. Negative: Tender Skin: Negative: Rash Musculoskeletal: Normal Range of Motion Extremities: Present: Other (pedal pulses intact). Absent: edema - Imaging and Cardiology EKG: report reviewed (normal sinus rhythm, heart rate of 93 per minute, LVH by voltage criteria) - Telemetry EKG Rhythm: Sinus Rhythm
[2019-10-16] MEDS ORDERED: METOPROLOL TARTRATE 25 MG TAB PO SCH (22:00)
--- NOTE | 2019-10-16 23:38 | Treadmill Report ---
NUCLEAR PERFUSION STUDY REASON FOR STUDY: Chest pain. READING PHYSICIAN: Dr. Staton. IMAGING PROTOCOL: The patient received 10 mCi of Technetium 99m Tetrofosmin for resting image and 28 mCi of Technetium 99m Tetrofosmin for stress imaging. The imaging for the whole procedure was completed 30-90 minutes following the initial injection of Technetium 99m Tetrofosmin. The SPECT imaging in the 180 degree arc was performed in the right anterior oblique projection. Computerized reconstruction of the images was performed for analysis. IMAGING RESULTS: Cavity is mildly dilated on both stress and rest. Distribution of radionuclide is normal in the anterior, inferior, septal and apical regions. Gated SPECT, EF 38% with [id number] global hypokinesis. The patient infused Lexiscan with no EKG changes. SUMMARY: 1. Negative Lexiscan EKG. 2. Mildly dilated cavity seen both on stress and rest with normal myocardial perfusion with gated SPECT EF 38% with [id number] global hypokinesis, suggest a nonischemic cardiomyopathy. JOB# [id number] CANDACE/CARLOTA
[2019-10-17] MEDS ORDERED: FUROSEMIDE 40 MG TAB PO SCH (10:00)
== END 2019-10-16 17:45 | disposition home or self-care (01) | DRG 293 ==
LOC: ED 15:25 → 4A 18:01
PROVIDERS: ADMIT Internal Medicine; ATTEND Internal Medicine
PROC: 3E0234Z Introduction of Serum, Toxoid and Vaccine into Muscle, Percutaneous Approach (ICD-10-PCS; principal; 2019-10-15)
DX: I11.0 Hypertensive heart disease with heart failure (principal); I50.41 Acute combined systolic (congestive) and diastolic (congestive) heart failure; I42.9 Cardiomyopathy, unspecified; E03.9 Hypothyroidism, unspecified; F10.10 Alcohol abuse, uncomplicated; F17.210 Nicotine dependence, cigarettes, uncomplicated; Z23 Encounter for immunization; Z82.49 Family history of ischemic heart disease and other diseases of the circulatory system; Z88.0 Allergy status to penicillin; Z71.6 Tobacco abuse counseling
CPT/HCPCS: 36415; 70491; 71046; 78452; 80053; 82550; 83036; 83690; 83735; 83880; 84100; 84436; 84439; 84443; 84484; 85025; 90686; 90732; 93005; 93010; 93017; 93306; 96374; 96375; 99406; G0378; A9502; J1170; J1940; J2270; J2405; Q9967